=== PATIENT | male | born 1970 | race Caucasian/White ===

== ENCOUNTER 2017-06-24 17:35 | Emergency (ER) | payer SELFPAY ==
[~2017-06-24] VITALS: Ht 182.9 cm; Wt 83.9 kg
[~2017-06-24 17:35] MED LIST: METHADONE HCL10 MG PO
[2017-06-24 18:50] VITALS: BP 115/70
[2017-06-24 19:01] LABS: BASOPHILS % (AUTO) 0.9 % (0.0-2.0); EOSINOPHILS % (AUTO) 4.2 % (0.0-3.0); MEAN CORPUSCULAR HEMOGLOBIN 29.4 PG (27.0-31.0); MEAN CORPUSCULAR HGB CONC 36.1 G/DL (32.0-36.0); MEAN CORPUSCULAR VOLUME 82 FL (80-99); MEAN PLATELET VOLUME 5.3 FL (6.5-10.1); MONOCYTES % (AUTO) 11.3 % (1.0-10.0); NEUTROPHILS % (AUTO) 58.6 % (45.0-75.0); PLATELET COUNT 263 K/UL (150-450); RED BLOOD COUNT 4.14 M/UL (4.70-6.10); RED CELL DISTRIBUTION WIDTH 12.4 % (11.6-14.8); WHITE BLOOD COUNT 7.4 K/UL (4.8-10.8)
[2017-06-24 19:28] LABS: ACETAMINOPHEN < 10 ug/mL (10-30); ALANINE AMINOTRANSFERASE 17 U/L (3-41); ALBUMIN/GLOBULIN RATIO 1.2 (1.0-2.7); ALCOHOL < 10 mg/dL; ANION GAP 10 (5-15); ASPARTATE AMINO TRANSFERASE 21 U/L (5-40); CALCIUM 9.2 mg/dL (8.6-10.2); CARBON DIOXIDE 28 mEQ/L (20-30); CHLORIDE 103 mEQ/L (98-107); CREATININE 0.9 mg/dL (0.7-1.2); GLOMERULAR FILTRATION RATE > 60 mL/min (>60); HEMOLYSIS 7; POTASSIUM 3.6 mEQ/L (3.4-4.9); SODIUM 141 mEQ/L (135-145); TOTAL PROTEIN 7.2 g/dL (6.6-8.7)
[2017-06-24 21:02] VITALS: BP 115/70
--- NOTE | 2017-06-24 21:31 | Emergency Room Report ---
History of Present Illness General Chief Complaint: Overdose Present Illness HPI The patient is a 47-year-old male brought in by ambulance for drug use. The patient was found sleeping on the floor with needles surrounding them. He admits to methamphetamine use. he denies any symptoms including N, V, F, chills , SOB, CP, VELASQUEZ, abd pain Allergies: Coded Allergies: No Known Allergies (Unverified , 06/24/17) UNABLE TO ASSESS (Unverified , 05/26/14) Patient History Past Medical History: see triage record Pertinent Family History: none Reviewed Nursing Documentation: PMH: Agreed, PSxH: Agreed Nursing Documentation-PMH History Of Psychiatric Problem: Yes Review of Systems All Other Systems: negative except mentioned in HPI Physical Exam Vital Signs Date Time Temp Pulse Resp B/P Pulse Ox O2 Delivery O2 Flow Rate FiO2 06/24/17 17:26 98.2 82 16 115/70 99 Room Air Sp02 EP Interpretation: reviewed, normal General Appearance: no apparent distress, alert, GCS 15, non-toxic Head: normocephalic, atraumatic Eyes: bilateral eye PERRL, bilateral eye abnormal EOM, bilateral eye other - pupils dilated ENT: hearing grossly normal, normal pharynx, no angioedema, normal voice Neck: full range of motion, supple/symm/no masses Respiratory: chest non-tender, lungs clear, normal breath sounds, speaking full sentences Cardiovascular #1: regular rate, rhythm, no edema Musculoskeletal: back normal, gait/station normal, normal range of motion, non- tender Neurologic: alert, responsive, motor strength/tone normal, sensory intact, speech normal Psychiatric: judgement/insight normal, memory normal, mood/affect normal, no suicidal/homicidal ideation Skin: normal color, no rash, warm/dry, well hydrated Medical Decision Making PA Attestation Dr. Lenz is my supervising physician. Patient management was discussed with my supervising physician Diagnostic Impression: Primary Impression: Drug abuse ER Course The patient is a 47-year-old male brought in by ambulance for drug use DDx considered but not limited to: acute alcohol intoxication, hepatic encephalopathy, drug overdose, hypoglycemia, psychosis Physical exam: Vitals are within normal limits. No apparent distress. Patient is lethargic. Head is normocephalic atraumatic. Pupils are equally round and reactive to light. Dilated. The patient is arousable by touch or name. Lungs are clear to auscultation bilaterally. No abnormal tenderness. Abdomen is soft. Otherwise exam is unremarkable The patient is given time to rest in the emergency department. IV fluids provided. Upon re-evaluation, patient is awake and alert. The patient is able to ambulate well and is asking to leave at this time. The patient be discharged home and given ER precautions. Patient was given advice on drug abuse Laboratory Tests Test 06/24/17 18:45 White Blood Count 7.4 K/UL (4.8-10.8) Red Blood Count 4.14 M/UL (4.70-6.10) L Hemoglobin 12.2 G/DL (14.2-18.0) L Hematocrit 33.8 % (42.0-52.0) L Mean Corpuscular Volume 82 FL (80-99) Mean Corpuscular Hemoglobin 29.4 PG (27.0-31.0) Mean Corpuscular Hemoglobin Concent 36.1 G/DL (32.0-36.0) H Red Cell Distribution Width 12.4 % (11.6-14.8) Platelet Count 263 K/UL (150-450) Mean Platelet Volume 5.3 FL (6.5-10.1) L Neutrophils (%) (Auto) 58.6 % (45.0-75.0) Lymphocytes (%) (Auto) 25.0 % (20.0-45.0) Monocytes (%) (Auto) 11.3 % (1.0-10.0) H Eosinophils (%) (Auto) 4.2 % (0.0-3.0) H Basophils (%) (Auto) 0.9 % (0.0-2.0) Sodium Level 141 mEQ/L (135-145) Potassium Level 3.6 mEQ/L (3.4-4.9) Chloride Level 103 mEQ/L (98-107) Carbon Dioxide Level 28 mEQ/L (20-30) Anion Gap 10 (5-15) Blood Urea Nitrogen 16 mg/dL (7-23) Creatinine 0.9 mg/dL (0.7-1.2) Estimate Glomerular Filtration Rate > 60 mL/min (>60) Glucose Level 144 mg/dL (74-106) H Calcium Level 9.2 mg/dL (8.6-10.2) Total Bilirubin 0.2 mg/dL (0.0-1.2) Aspartate Amino Transferase (AST) 21 U/L (5-40) Alanine Aminotransferase (ALT) 17 U/L (3-41) Alkaline Phosphatase 67 U/L (40-129) Total Protein 7.2 g/dL (6.6-8.7) Albumin 4.0 g/dL (3.5-5.2) Globulin 3.2 g/dL Albumin/Globulin Ratio 1.2 (1.0-2.7) Salicylates Level < 1 mg/dL (10-30) L Urine Opiates Screen Positive (NEGATIVE) H Acetaminophen Level < 10 ug/mL (10-30) L Urine Barbiturates Screen Negative (NEGATIVE) Phencyclidine (PCP) Screen Negative (NEGATIVE) Urine Amphetamines Screen Positive (NEGATIVE) H Urine Benzodiazepines Screen Negative (NEGATIVE) Urine Cocaine Screen Negative (NEGATIVE) Urine Marijuana (THC) Screen Negative (NEGATIVE) Serum Alcohol < 10 mg/dL Lab Results Impression CBC, CMP unremarkable. UDS + for methamphetamine and opiate use. Last Vital Signs Date Time Temp Pulse Resp B/P Pulse Ox O2 Delivery O2 Flow Rate FiO2 06/24/17 21:02 98.2 98 16 115/70 99 Room Air Status: improved Disposition: HOME, SELF-CARE Condition: Improved Patient Instructions: Stimulant Use Disorder-Amphetamines Additional Instructions: My findings were discussed with the patient. Patient was counseled to seek help for drug abuse. Patient is stable for discharge, is alert and oriented, and can ambulate without difficulty. Patient is asked to return to ED if he experiences chest pain, abdominal pain, dizziness, falls down, or for any reason. CLARENCE BUSBY Jun 24, 2017 21:31
== END 2017-06-24 21:02 | disposition home or self-care (01) ==
LOC: EDBD 17:35 → EMR 17:45
DX: F19.10 Other psychoactive substance abuse, uncomplicated (principal)
CPT/HCPCS: 36415; 80053; 80300; 85025; 96374; 99284; G0480; 80329